=== PATIENT | female | born 1950 | race Caucasian/White ===

== ENCOUNTER 2016-08-12 05:35 | Emergency (ER) | payer MEDICARE, BC ==
[~2016-08-12] VITALS: Ht 152.4 cm; Wt 72.6 kg
[~2016-08-12 05:35] MED LIST: HYDR1TAB PO
[2016-08-12] MEDS ORDERED: LEVO125T6 PO (05:54)
[2016-08-12] MEDS ORDERED: OSLT75C (05:54)
[2016-08-12] MEDS ORDERED: OLME1TAB28 PO (05:54)
[2016-08-12] MEDS ORDERED: GUAI-813 (05:54)
[2016-08-12] MEDS ORDERED: NS IV 1000 ML 1,000 ML IV ONE (06:19)
[2016-08-12] MEDS ORDERED: ACETAMINOPHEN 500 MG TAB (TYLENOL) PO STA (06:19)
--- NOTE | 2016-08-12 06:24 | ED Cough/URI ---
General Chief Complaint: Cough/Cold/Flu Symptoms Stated Complaint: FEVER,CAN'T EAT Nursing Triage Note: DX WITH FLU THURSDAY, STARTED ON TAMIFLU. PT REPORTS PERSISTANT FEVER SINCE THURSDAY. DENIES TAKING APAP/MOTRIN FOR FEVER. ALSO C/O DECREASED PO INTAKE Source: patient Exam Limitations: no limitations History of Present Illness Time seen by provider: 06:12 Initial Comments Here with report of fever and bodyaches as well as increasing cough and worried about being too dry. She was diagnosed with influenza 4 days ago and started on Tamiflu. She still has fever and chills. She has been taking her Tamiflu but has not taken anything for the fever. She states she did not want to take. Denies nausea or vomiting. Denies dysuria. Does report some constipation. She is able to eat and drink. Her body aches are better but her cough is worse. Timing/Duration: week, getting worse Severity/Quality: moderate, dry cough Prior Episodes/Possible Cause: occasional episodes Associated Symptoms: cough, fever/chills, nasal congestion, nasal drainage, wheezing Allergies and Home Medications Allergies Coded Allergies: No Known Drug Allergies (Unverified , 03/09/11) Home Medications Guaifenesin/Codeine Phosphate 118 Ml Liquid, #236 (Reported) Hydrocodone Bit/Acetaminophen 1 Each Tablet, 1-2 EACH PO Q4HR PRN, #14 Ref 0 Prescribed by: ADRIANE GREENFIELD on 03/09/111953 Levothyroxine Sodium 125 Mcg Tablet, 1 TAB PO UD, #90 (Reported) Olmesartan/Amlodipin/Hcthiazid 1 Each Tablet, 1 TAB PO UD, #90 (Reported) Oseltamivir Phosphate 75 Mg Cap, #10 (Reported) Constitutional: see HPI, chills, fever EENTM: no symptoms reported Respiratory: see HPI, cough, wheezing Cardiovascular: no symptoms reported Gastrointestinal: see HPI, constipation, No vomiting Genitourinary: see HPI Musculoskeletal: see HPI, muscle pain Skin: no symptoms reported, No rash All Other Systems Reviewed Negative Unless Noted: Yes Past Zwqonjn-Sigjwi-Pbnpig Hx Patient Social History Alcohol Use: Denies Use Recreational Drug Use: No Smoking Status: Never a Smoker 2nd Hand Smoke Exposure: No Recent Foreign Travel: No Contact w/Someone Who Travel: No Recent Infectious Disease Expo: No Recent Hopitalizations: No Immunizations Up To Date Tetanus Booster (TDap): Less than 5yrs Seasonal Allergies Seasonal Allergies: No Surgeries HX Surgeries: Yes Surgeries: Appendectomy, Cardiac Respiratory Hx Respiratory Disorders: No Cardiovascular Hx Cardiac Disorders: Yes Cardiac Disorders: Hypertension Neurological Hx Neurological Disorders: No Reproductive System : No Hx Reproductive Disorders: No [employer] History: Menopausal Genitourinary Hx Genitourinary Disorders: No Gastrointestinal Hx Gastrointestinal Disorders: No Musculoskeletal Hx Musculoskeletal Disorders: No Endocrine Hx Endocrine Disorders: Yes Endocrine Disorders: Hypothyroidsim HEENT HX ENT Disorders: No Cancer Hx Cancer: No Psychosocial Hx Psychiatric Problems: No Integumentary HX Skin/Integumentary Disorder: No Blood Transfusions Hx Blood Disorders: No Reviewed Nursing Assessment Reviewed/Agree w Nursing PMH: Yes Family Medical History Significant Family History: No Pertinent Family Hx Physical Exam Vital Signs Vital Sign - Last 12Hours 08/12/16 05:54 Temp 102.2 Pulse 87 Resp 18 B/P (MAP) 137/89 Pulse Ox 94 O2 Delivery Room Air Capillary Refill : Less Than 3 Seconds General Appearance: WD/WN, no apparent distress HEENT: TMs normal, pharyngeal erythema Neck: full range of motion, supple Respiratory: no accessory muscle use, wheezing, expiration, other (course swelling,) Cardiovascular: regular rate, rhythm, systolic murmur Gastrointestinal: non tender, soft Extremities: non-tender, normal inspection Neurologic/Psychiatric: alert, oriented x 3 Skin: normal color, warm/dry Progress/Results/Core Measures Results/Orders Lab Results Laboratory Tests Test 08/12/16 06:45 Range/Units White Blood Count 7.1 4.3-11.0 10^3/uL Red Blood Count 4.56 4.35-5.85 10^6/uL Hemoglobin 13.9 11.5-16.0 G/DL Hematocrit 39 35-52 % Mean Corpuscular Volume 85 80-99 FL Mean Corpuscular Hemoglobin 31 25-34 PG Mean Corpuscular Hemoglobin Concent 36 32-36 G/DL Red Cell Distribution Width 12.5 10.0-14.5 % Platelet Count 133 130-400 10^3/uL Mean Platelet Volume 10.8 H 7.4-10.4 FL Neutrophils (%) (Auto) 78 H 42-75 % Lymphocytes (%) (Auto) 12 12-44 % Monocytes (%) (Auto) 9 0-12 % Eosinophils (%) (Auto) 0 0-10 % Basophils (%) (Auto) 0 0-10 % Neutrophils # (Auto) 5.5 1.8-7.8 X 10^3 Lymphocytes # (Auto) 0.9 L 1.0-4.0 X 10^3 Monocytes # (Auto) 0.7 0.0-1.0 X 10^3 Eosinophils # (Auto) 0.0 0.0-0.3 10^3/uL Basophils # (Auto) 0.0 0.0-0.1 10^3/uL Urine Color YELLOW Urine Clarity CLEAR Urine pH 6 5-9 Urine Specific [place] 1.015 L 1.016-1.022 Urine Protein 1+ H NEGATIVE Urine Glucose (UA) NEGATIVE NEGATIVE Urine Ketones 1+ H NEGATIVE Urine Nitrite NEGATIVE NEGATIVE Urine Bilirubin NEGATIVE NEGATIVE Urine Urobilinogen NORMAL NORMAL MG/DL Urine Leukocyte Esterase 1+ H NEGATIVE Urine RBC (Auto) 1+ H NEGATIVE Urine RBC NONE /HPF Urine WBC 0-2 /HPF Urine Squamous Epithelial Cells 2-5 /HPF Urine Crystals NONE /LPF Urine Bacteria TRACE /HPF Urine Casts NONE /LPF Urine Mucus SMALL H /LPF Urine Culture Indicated NO Sodium Level 135 135-145 MMOL/L Potassium Level 3.4 L 3.6-5.0 MMOL/L Chloride Level 97 L 98-107 MMOL/L Carbon Dioxide Level 28 21-32 MMOL/L Anion Gap 10 5-14 MMOL/L Blood Urea Nitrogen 15 7-18 MG/DL Creatinine 0.95 0.60-1.30 MG/DL Estimat Glomerular Filtration Rate 59 BUN/Creatinine Ratio 16 Glucose Level 114 H 70-105 MG/DL Calcium Level 9.1 8.5-10.1 MG/DL Total Bilirubin 0.6 0.1-1.0 MG/DL Aspartate Amino Transf (AST/SGOT) 23 5-34 U/L Alanine Aminotransferase (ALT/SGPT) 27 0-55 U/L Alkaline Phosphatase 52 40-136 U/L Total Protein 6.7 6.4-8.2 G/DL Albumin 4.0 3.2-4.5 G/DL My Orders Orders - CARLI ROQUE MD Cbc With Automated Diff (08/12/16 06:19) Comprehensive Metabolic Panel (08/12/16 06:19) Ua Culture If Indicated (08/12/16 06:19) Chest Pa/Lat (2 View) (08/12/16 06:19) Saline Lock/Iv-Start (08/12/16 06:19) Ns Iv 1000 Ml (Sodium Chloride 0.9%) (08/12/16 06:19) Acetaminophen Tablet (Tylenol Tablet) (08/12/16 06:19) Medications Given in ED Current Medications Medications Dose Ordered Sig/Lata Route Start Time Stop Time Status Last Admin Dose Admin Sodium Chloride 1,000 ml @ 0 mls/hr Q0M ONCE IV 08/12/16 06:19 08/12/16 06:21 DC 08/12/16 06:25 0 MLS/HR Vital Signs/I&O Vital Sign - Last 12Hours 08/12/16 08/12/16 05:54 06:24 Temp 102.2 102.2 Pulse 87 Resp 18 B/P (MAP) 137/89 Pulse Ox 94 O2 Delivery Room Air Blood Pressure Mean: 105 Progress Note : Progress Note Seen and evaluated. IV, labs and UA ordered. Chest x-ray two-view ordered. Normal saline 1 L bolus and acetaminophen 1000 mg by mouth ordered. Monitor patient. 0800: No acute findings. She feels better after Tylenol. Discharged home with return precautions. Patient verbalize understanding instructions and agreement with plan. Diagnostic Imaging Diagonstic Imaging: Xray Plain Films/CT/US/NM/MRI: chest Comments NAME: LUAN COLMENARES [facility] REC#: [id number] PT STATUS: REG ER : 1950 PHYSICIAN: CARLI ROQUE MD ADMIT DATE: 08/12/16/ER Draft Date of Exam:08/12/16 CHEST PA/LAT (2 VIEW) INDICATION: Fever and loss of appetite PA and lateral views of the chest are obtained. There is no previous study for comparison. Overall heart size and pulmonary vascularity are within normal limits. There is no pneumothorax or consolidation. No significant pleural fluid is identified. There does appear to be slight linear atelectasis in the left lung base. IMPRESSION: Slight left basilar atelectasis without other evidence of acute abnormality or infiltrate. Dictated on workstation # [id number] Dict: 08/12/16 0750 Trans: 08/12/16 0757 ALTON [id number] Interpreted by: ANDERS PAVON MD Electronically signed by: Reviewed: Reviewed by Me Departure Impression Impression: Primary Impression: Influenza Disposition: 01 HOME, SELF-CARE Condition: Stable Departure-Patient Inst. Decision time for Depature: 08:03 Referrals: YVONNE FRANCO MD (PCP/Family) Primary Care Physician Patient Instructions: Flu, Adult (DC), Fever, Adult (DC) Add. Discharge Instructions: All discharge instructions reviewed with patient and/or family. Voiced understanding. Drink plenty of fluids. You may use Tylenol or the generic acetaminophen 1000 mg every 8 hours as needed for fever or pain. You may use ibuprofen 600 mg every 8 hours as needed for fever or pain. Follow-up with your Dr. in a few days for recheck. Return for worsening, fever, vomiting, weakness, breathing problems or other concerns as needed. Work/School Note: Work Release Form Date Seen in the Emergency Department: Aug 12, 2016 Return to Work: Aug 14, 2016 Restrictions: Return-No Fever (24hrs) CARLI ROQUE MD Aug 12, 2016 06:24
[2016-08-12 06:52] LABS: BASOPHILS % (AUTO) 0 % (0-10); EOSINOPHILS % (AUTO) 0 % (0-10); LYMPHOCYTES # (AUTO) 0.9 X 10^3 (1.0-4.0); LYMPHOCYTES % (AUTO) 12 % (12-44); MEAN CORPUSCULAR HEMOGLOBIN 31 PG (25-34); MEAN CORPUSCULAR HGB CONC 36 G/DL (32-36); MEAN CORPUSCULAR VOLUME 85 FL (80-99); MEAN PLATELET VOLUME 10.8 FL (7.4-10.4); MONOCYTES # (AUTO) 0.7 X 10^3 (0.0-1.0); MONOCYTES % (AUTO) 9 % (0-12); NEUTROPHILS # (AUTO) 5.5 X 10^3 (1.8-7.8); NEUTROPHILS % (AUTO) 78 % (42-75); PLATELET COUNT 133 10^3/uL (130-400); RED BLOOD COUNT 4.56 10^6/uL (4.35-5.85); RED CELL DISTRIBUTION WIDTH 12.5 % (10.0-14.5); WHITE BLOOD COUNT 7.1 10^3/uL (4.3-11.0)
[2016-08-12 06:54] LABS: BILIRUBIN,URINE NEGATIVE (NEGATIVE); KETONES,URINE 1+ (NEGATIVE); LEUKOCYTE ESTERASE ,URINE 1+ (NEGATIVE); NITRITE,URINE NEGATIVE (NEGATIVE); PH,URINE 6 (5-9); PROTEIN,URINE 1+ (NEGATIVE); UROBILINOGEN,URINE NORMAL (NORMAL)
[2016-08-12 07:15] LABS: WBC,URINE 0-2 /HPF
[2016-08-12 07:25] LABS: BILIRUBIN,TOTAL 0.6 MG/DL (0.1-1.0); CALCIUM 9.1 MG/DL (8.5-10.1); CREATININE SERUM 0.95 MG/DL (0.60-1.30); POTASSIUM 3.4 MMOL/L (3.6-5.0); TOTAL PROTEIN 6.7 G/DL (6.4-8.2)
--- NOTE | 2016-08-12 07:57 | Diagnostic Imaging Report ---
INDICATION: Fever and loss of appetite PA and lateral views of the chest are obtained. There is no previous study for comparison. Overall heart size and pulmonary vascularity are within normal limits. There is no pneumothorax or consolidation. No significant pleural fluid is identified. There does appear to be slight linear atelectasis in the left lung base. IMPRESSION: Slight left basilar atelectasis without other evidence of acute abnormality or infiltrate. Dictated by: Dictated on workstation # [id number]
[2016-08-12 08:11] VITALS: BP 113/81
== END 2016-08-12 08:11 | disposition home or self-care (01) ==
LOC: EDUNIT# 05:35 → ER 05:39
DX: J10.1 Influenza due to other identified influenza virus with other respiratory manifestations (principal); I10 Essential (primary) hypertension; Z79.899 Other long term (current) drug therapy
CPT/HCPCS: 36415; 71020; 80053; 81000; 85025; 96360

== ENCOUNTER → 2019-05-13 | Outpatient (CLI) | payer BC, MEDICARE ==
[~2019-05-13] MED LIST changes: +GUAI-813; +LEVO125T6 PO; +OLME1TAB28 PO; +OSLT75C
--- NOTE | 2019-05-13 09:18 | Diagnostic Imaging Report ---
PROCEDURE: US Abdomen, limited. TECHNIQUE: Multiple realtime grayscale images were obtained over the abdomen in various projections. INDICATION: Abdominal wall hernia. FINDINGS: Evaluation of the anterior abdominal wall was performed. This study was performed with patient performing Valsalva maneuvers. No definite abdominal wall defect is seen. No fluid collection is detected. IMPRESSION: No abdominal wall hernia is identified by ultrasound. Dictated by: Dictated on workstation # [id number]
== END ==
LOC: RAD 08:39
PROVIDERS: ATTEND Nurse Practitioner Family
DX: K43.9 Ventral hernia without obstruction or gangrene (principal)
CPT/HCPCS: 76705

== ENCOUNTER → 2022-08-29 | Outpatient (CLI) | payer BC, MEDICARE ==
[~2022-08-29] MED LIST changes: +CODE118L3; -GUAI-813; -OLME1TAB28 PO; +[UNRECOGNIZED DRUG - CODE] PO
== END ==
LOC: CARD 08:14
PROVIDERS: ATTEND Internal Medicine Cardiovascular Disease
DX: I34.0 Nonrheumatic mitral (valve) insufficiency (principal); I51.7 Cardiomegaly
CPT/HCPCS: 93306